=== PATIENT | male | born 1955 | race Caucasian/White ===

== ENCOUNTER 2017-10-26 17:44 | Observation (INO) | payer SELFPAY ==
[2017-10-26 17:59] VITALS: BMI 31.3
[2017-10-26] MEDS ORDERED: ASPIRIN 81 MG CHEWTAB ONE (18:04)
[2017-10-26 18:16] LABS: BASOPHILS % (AUTO) 0.5 % (0.2-1.0); EOSINOPHILS % (AUTO) 0.7 % (0.9-2.9); HEMATOCRIT 40.8 % (42.0-54.0); HEMOGLOBIN 13.9 g/dL (13.5-18.0); LYMPHOCYTES % (AUTO) 33.5 % (21.0-51.0); MEAN CORPUSCULAR HEMOGLOBIN 28.8 pg (27.0-34.0); MEAN CORPUSCULAR HGB CONC 34.1 g/dL (33.0-35.0); MEAN CORPUSCULAR VOLUME 84.6 fL (80.0-100.0); MEAN PLATELET VOLUME 7.7 fL (7.4-11.0); MONOCYTES # (AUTO) 0.6 x10^3/uL (0.3-0.8); MONOCYTES % (AUTO) 10.5 % (0.0-13.0); NEUTROPHILS # (AUTO) 3.3 x10^3/uL (2.2-4.8); NEUTROPHILS % (AUTO) 54.8 % (42.0-75.0); PLATELET COUNT 238 X10^3/uL (150.0-450.0); RED BLOOD COUNT 4.82 X10^6/uL (4.7-6.0); RED CELL DISTRIBUTION WIDTH 15.3 % (11.6-16.5); WHITE BLOOD COUNT 5.9 X10^3/uL (3.6-10.0)
[2017-10-26 18:33] LABS: BLOOD UREA NITROGEN 13 mg/dL (7-18); CARBON DIOXIDE 26.5 mmol/L (21-32); CHLORIDE 103 mmol/L (98-107); CREATININE 1.01 mg/dL (0.70-1.30); SODIUM 140 mmol/L (136-145); TROPONIN I < 0.02 ng/mL (0-1.5); eGFR BLACK RACES > 60 (>60); eGFR NON BLACK RACES > 60 (>60)
[2017-10-26 18:37] LABS: ALANINE AMINOTRANSFERASE 68 Units/L (12-78); ALBUMIN 3.8 g/dL (3.4-5.0); ALKALINE PHOSPHATASE 122 Units/L (46-116); ASPARTATE AMINO TRANSFERASE 25 Units/L (15-37); CKMB % 2.3 % (<4); CREATINE KINASE 56 Units/L (39-308); CREATINE KINASE MB 1.3 ng/mL (0-4.0); MAGNESIUM 2.1 mg/dL (1.7-2.9); TOTAL PROTEIN 7.3 g/dL (6.4-8.2)
--- NOTE | 2017-10-26 18:57 | RAD ---
HISTORY: 62-year-old male with chest pain. History of COPD. Study: Frontal view of the chest. Comparison: None. Findings: The trachea is midline. The cardiac silhouette is borderline enlarged with low lung volumes. The vania ngs are clear without focal consolidation, effusion or pneumothorax. Soft tissues are unremarkable. Osseous structures are unremarkable. IMPRESSION: 1. Borderline cardiomegaly without other acute cardiopulmonary process. Reported By:
--- NOTE | 2017-10-26 20:05 | DR.CP ---
HPI - Time Seen Time seen: 18:10 - PCP Primary Care Physician: DR BHARATH BRIAN - Complaint Chief Complaint Doctor Comments: Patient presents with complaint of intermittent chest pain for two weeks. 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 He reports that every 2-3 weeks he gets chest pain that radiates to the back. He had a heart cath 1-2 years ago in [place]. Chief Complaint:: PT STATED HE HAS HAD MID CHEST PAIN FOR TWO WEEKS, HE STATED HE COULD NOT SEE HIS DOCTOR AND HE HAS NO INSURANCE SO HE CAME TO OUR ER. - Source History Provided: Patient - Mode of Arrival Mode of Arrival: Ambulatory - Timing Onset of Chief Complaint: 10/12/17 PMH - PMH Past Medical History: Yes Past Medical History: GERD, Hypertension Past Surgical History: Yes Surgical History: Cholecystectomy - Family History History of Family Medical Conditions: No - Social History Does patient currently use any type of tobacco product: No Have you used tobacco products in the last 12 months: No Type of Tobacco Use: None Does any household member use tobacco: No Alcohol Use: Occasionally Do you use any recreational Drugs:: No Lives With: Family Lives Where: Home - infectious screening In the last 2 months have you had wt loss of >10#?: NO Have you had fever, night sweats or hemotysis?: No Have you traveled outside the country in the last 6 months?: No Isolation: Standard PE - Vitals Vitals: Temperature 98.6 F Pulse Rate [Apical] 60 Pulse Rate 65 Respiratory Rate 16 Blood Pressure [Left Arm] 136/70 Blood Pressure 153/81 O2 Sat by Pulse Oximetry 100 Course - Reevaluation 1st: Improved - Consultation Called: 20:20 (Dr Mason admits r/o OK) ROR - Labs Reviewed Result Diagrams: 10/26/17 18:08 10/26/17 18:08 Laboratory: WBC 5.9 X10^3/uL (3.6-10.0) 10/26/17 18:08 RBC 4.82 X10^6/uL (4.7-6.0) 10/26/17 18:08 Hgb 13.9 g/dL (13.5-18.0) 10/26/17 18:08 Hct 40.8 % (42.0-54.0) L 10/26/17 18:08 MCV 84.6 fL (80.0-100.0) 10/26/17 18:08 MCH 28.8 pg (27.0-34.0) 10/26/17 18:08 MCHC 34.1 g/dL (33.0-35.0) 10/26/17 18:08 RDW 15.3 % (11.6-16.5) 10/26/17 18:08 Plt Count 238 X10^3/uL (150.0-450.0) 10/26/17 18:08 MPV 7.7 fL (7.4-11.0) 10/26/17 18:08 Neut % (Auto) 54.8 % (42.0-75.0) 10/26/17 18:08 Lymph % (Auto) 33.5 % (21.0-51.0) 10/26/17 18:08 [place] % (Auto) 10.5 % (0.0-13.0) 10/26/17 18:08 Eos % (Auto) 0.7 % (0.9-2.9) L 10/26/17 18:08 Baso % (Auto) 0.5 % (0.2-1.0) 10/26/17 18:08 Neut # (Auto) 3.3 x10^3/uL (2.2-4.8) 10/26/17 18:08 Lymph # (Auto) 2.0 X10^3/uL (1.3-2.9) 10/26/17 18:08 [place] # (Auto) 0.6 x10^3/uL (0.3-0.8) 10/26/17 18:08 Eos # (Auto) 0.0 x10^3/uL (0.0-0.2) 10/26/17 18:08 Baso # (Auto) 0.0 X10^3/uL (0.0-0.1) 10/26/17 18:08 Absolute Nucleated RBC 0.1 /100WBC 10/26/17 18:08 INR Target Range - 10/26/17 18:08 INR 0.92 (0.8-1.3) 10/26/17 18:08 APTT 27.1 SECONDS (22.9-36.5) 10/26/17 18:08 PTT Comment - 10/26/17 18:08 Sodium 140 mmol/L (136-145) 10/26/17 18:08 Corrected Sodium TNP 10/26/17 18:08 Potassium 3.8 mmol/L (3.5-5.1) 10/26/17 18:08 Chloride 103 mmol/L (98-107) 10/26/17 18:08 Carbon Dioxide 26.5 mmol/L (21-32) 10/26/17 18:08 BUN 13 mg/dL (7-18) 10/26/17 18:08 Creatinine 1.01 mg/dL (0.70-1.30) 10/26/17 18:08 Est GFR (MDRD) Af Amer > 60 (>60) 10/26/17 18:08 Est GFR (MDRD) Non-Af > 60 (>60) 10/26/17 18:08 Glucose 98 mg/dL (65-99) 10/26/17 18:08 Calcium 9.0 mg/dL (8.5-10.1) 10/26/17 18:08 Corrected Calcium TNP 10/26/17 18:08 Magnesium 2.1 mg/dL (1.7-2.9) 10/26/17 18:08 Total Bilirubin 0.30 mg/dL (0.2-1.0) 10/26/17 18:08 AST 25 Units/L (15-37) 10/26/17 18:08 ALT 68 Units/L (12-78) 10/26/17 18:08 Alkaline Phosphatase 122 Units/L (46-116) H 10/26/17 18:08 Creatine Kinase 56 Units/L (39-308) 10/26/17 18:08 CK-MB (CK-2) 1.3 ng/mL (0-4.0) 10/26/17 18:08 CK/CKMB % Calc 2.3 % (<4) 10/26/17 18:08 Troponin I < 0.02 ng/mL (0-1.5) 10/26/17 18:08 Total Protein 7.3 g/dL (6.4-8.2) 10/26/17 18:08 Albumin 3.8 g/dL (3.4-5.0) 10/26/17 18:08 Globulin 3.5 g/dL (2.5-4.5) 10/26/17 18:08 Albumin/Globulin Ratio 1.1 Ratio (1.1-2.1) 10/26/17 18:08 - XRAY XRAY Interpreted by: Radiologist - Diagnosis Discharge Problem: Chest pain Qualifiers: Chest pain type: unspecified Qualified Code(s): R07.9 - Chest pain, unspecified - Discharge Plan Condition: Stable - Follow ups/Referrals Follow ups/Referrals: BHARATH BRIAN [Primary Care Provider] - 3 days - Instructions
[2017-10-27 00:34] LABS: CKMB % 2.1 % (<4); CREATINE KINASE 48 Units/L (39-308); TROPONIN I < 0.02 ng/mL (0-1.5)
[2017-10-27 06:05] LABS: CHOL/HDL RATIO 4.3 (0.0-5.0); CHOLESTEROL 237 mg/dL (0-200); CKMB % 2.8 % (<4); CREATINE KINASE 47 Units/L (39-308); CREATINE KINASE MB 1.3 ng/mL (0-4.0); HDL CHOLESTEROL 55 mg/dL (40-60); TRIGLYCERIDES 95 mg/dL (0-150); TROPONIN I < 0.02 ng/mL (0-1.5)
[2017-10-27] MEDS ORDERED: LEVSIN/MAALOX/LIDOC VISC PO ONE (09:27)
[2017-10-27 11:54] VITALS: BP 129/57
[2017-10-27] MEDS ORDERED: LEVSIN/MAALOX/LIDOC VISC ONE (12:20)
[2017-10-27] MEDS ORDERED: ASPIRIN 81 MG CHEWTAB PO ONE (18:01)
== END 2017-10-27 14:11 | disposition home or self-care (01) ==
LOC: ER 17:52 → MED/SURG 20:11
PROVIDERS: ADMIT Obstetrics & Gynecology Obstetrics; ATTEND Obstetrics & Gynecology Obstetrics
DX: R07.89 Other chest pain (principal); I51.7 Cardiomegaly; K21.9 Gastro-esophageal reflux disease without esophagitis; I10 Essential (primary) hypertension; I25.10 Atherosclerotic heart disease of native coronary artery without angina pectoris; E78.2 Mixed hyperlipidemia
CPT/HCPCS: 36415; 71045; 80053; 80061; 82550; 82553; 83735; 84484; 85025; 85610; 85730; 93005; 93010; 94760; 96365; 99284; A4216; A4222; G0378